=== PATIENT | male | born 1980 | race Caucasian/White ===

== ENCOUNTER 2024-03-13 17:03 | Inpatient (IN) | payer OTHER, SELFPAY ==
[2024-03-13 18:06] VITALS: BMI 22.9
[2024-03-13 18:25] VITALS: BP 125/75; PULSE 80; RESP 17; TEMP 37.1; O2SAT 98
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
[2024-03-13 20:00] VITALS: BP 117/64; PULSE 77; TEMP 36.6; O2SAT 98
[2024-03-13] MEDS: Nicotine Polacrilex 2 MG GUM 4 MG BUCCAL (20:18)
[2024-03-13] MEDS: Gabapentin 400 MG CAPSULE 800 MG PO (20:19)
[2024-03-13] MEDS: Melatonin 3 MG TABLET 9 MG PO (20:19)
[2024-03-13] MEDS: Baclofen 20 MG TABLET PO (20:20)
[2024-03-13] MEDS: buPROPion HCl XL 150 MG TAB.ER.24H PO (21:03)
--- NOTE | 2024-03-14 05:05 | PC.NURSE ---
Pt signed a 3-day notice on 03/13/24 and is up on 03/18/24.
[2024-03-14 08:00] VITALS: BP 117/60; PULSE 61; RESP 18; TEMP 36.4; O2SAT 99
[2024-03-14] MEDS: Baclofen 20 MG TABLET PO ×3 (08:07→20:48)
[2024-03-14] MEDS: buPROPion HCl XL 150 MG TAB.ER.24H PO (08:07)
[2024-03-14] MEDS: Nicotine 21 MG PATCH.TD24 TRANSDERMA (08:07)
[2024-03-14] MEDS: Gabapentin 400 MG CAPSULE 800 MG PO ×3 (08:07→20:47)
[2024-03-14] MEDS: Nicotine Polacrilex 2 MG GUM 4 MG BUCCAL ×6 (08:08→20:53)
[2024-03-14 09:26] LABS: Alanine Aminotransferase 22 U/L (0-40); Albumin Level 3.6 g/dL (3.5-5.0); Alkaline Phosphatase 47 U/L (39-117); Anion Gap 12 (12-20); Aspartate Amino Transferase 14 U/L (5-37); Bilirubin Total 0.2 mg/dL (0.0-1.0); Blood Urea Nitrogen 22 mg/dL (9-16); Calcium 9.1 mg/dL (8.4-10.2); Carbon Dioxide 31 mmol/L (22-29); Chloride 106 mmol/L (96-108); Cholesterol 160 mg/dL (<200); Creatinine Clr Calc Pharmacy 115.4; Estimated Glomerular Filt Rate > 60; Glucose Fasting 86 mg/dL (60-99); HDL Cholesterol 47 mg/dL (>40); LDL Cholesterol Calculated 97 mg/dL (<100); Potassium 4.7 mmol/L (3.3-5.1); Sodium 144 mmol/L (135-145); Total Protein 6.2 g/dL (6.5-8.0); Triglycerides 83 mg/dL (<150)
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
[2024-03-14] MEDS: FLUoxetine HCl 10 MG CAPSULE PO (13:03)
[2024-03-14] MEDS: buPROPion HCL 75 MG TABLET 150 MG PO ×2 (14:07→20:48)
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
[2024-03-14 20:00] VITALS: BP 120/56; PULSE 80; TEMP 36.5; O2SAT 97
[2024-03-14] MEDS: Melatonin 3 MG TABLET 10 MG PO (20:49)
[2024-03-14] MEDS: diphenhydrAMINE HCL 25 MG CAPSULE 50 MG PO (20:53)
[2024-03-15 08:00] VITALS: BP 134/89; PULSE 75; RESP 17; TEMP 36.5; O2SAT 99
[2024-03-15] MEDS: Gabapentin 400 MG CAPSULE 800 MG PO ×3 (08:39→20:35)
[2024-03-15] MEDS: FLUoxetine HCl 10 MG CAPSULE PO (08:39)
[2024-03-15] MEDS: Baclofen 20 MG TABLET PO ×3 (08:40→20:34)
[2024-03-15] MEDS: buPROPion HCL 75 MG TABLET 150 MG PO (08:40)
[2024-03-15] MEDS: Nicotine 21 MG PATCH.TD24 TRANSDERMA (08:40)
--- NOTE | 2024-03-15 09:00 | P.PNPSI_ITS ---
Subjective Subjective Date of Service: 03/15/24 Reason For Visit: unspecified depressive disorder, stimulant use Subjective Notes: Conditional Voluntary and 3 Day Interim History: Patient was seen and discussed in rounds today. Records and plans were reviewed. He has been common pleasant. Some anxiety reported. Eating and sleeping adequately. He states that he is getting the Wellbutrin immediate release and would like to switch to Wellbutrin XL since we do not have the SR available. Tolerating Prozac which was started. No SI. No complaints or side effects. No changes were made today. Medication Compliance: Yes Side effects from medications: No Attending Groups: Yes Review of Systems Review of Systems Yes all other systems are reviewed and are negative Mental Status Exam Mental Status Exam Narrative: In today's visit he is alert, oriented and pleasant. Normal speech. Good eye contact. Affect is appropriate and constricted. No signs of psychosis. No SI/HI. No abnormalities of gait. No musculoskeletal problems. Cognitively is intact. Judgment is intact Diagnostics Vital Signs (24Hr): Vital Signs - 24 hr 03/14/24 20:00 03/15/24 08:00 Temperature 97.7 F 97.7 F Pulse Rate 80 75 Respiratory Rate 17 Blood Pressure 120/56 L 134/89 Pulse Oximetry 97 99 Oxygen Delivery Method Room Air Room Air BMI result Body Mass Index 22.9 Labs 03/14/24 08:27 Labs: Laboratory Results - last 48 hr 03/14/24 08:27 Sodium 144 Potassium 4.7 Chloride 106 Carbon Dioxide 31 H Anion Gap 12 BUN 22 H Creatinine 0.91 Estim Creat Clear Calc 115.4 Estimated GFR > 60 Fasting Glucose 86 Calcium 9.1 Total Bilirubin 0.2 AST 14 ALT 22 Alkaline Phosphatase 47 Total Protein 6.2 L Albumin 3.6 Triglycerides 83 Cholesterol 160 LDL Cholesterol, Calc 97 HDL Cholesterol 47 Medications Medications Current Medications Acetaminophen (Acetaminophen 325 Mg Tablet) 650 mg PO Q6H PRN PRN Reason: Headache/Pain Mild Scale (1-3) Al Hydroxide/Mg Hydroxide (Magnesium Hydrox/Alum Hydrox 30 Ml Oral.Susp) 30 ml PO Q6H PRN PRN Reason: Heartburn/Nausea Amphetamine/Dextroamphetamine (Dextroamphetamine/Amphetamine Xr 10 Mg Cap.Er.24h) 10 mg PO DAILY [facility] Baclofen (Baclofen 20 Mg Tablet) 20 mg PO TID@0900,1200,2100 [facility] Last Admin: 03/15/24 08:40 Dose: 20 mg Bupropion HCl (Bupropion Hcl Xl 150 Mg Tab.Er.24h) 150 mg PO TID [facility] Clonidine HCl (Clonidine Hcl 0.1 Mg Tablet) 0.1 mg PO Q4H PRN; Protocol PRN Reason: anxiety/mild anxiety Diphenhydramine HCl (Diphenhydramine Hcl 25 Mg Capsule) 50 mg PO Q4H PRN PRN Reason: agitation Diphenhydramine HCl (Diphenhydramine Hcl 25 Mg Capsule) 50 mg PO BEDTIME PRN PRN Reason: insomnia Last Admin: 03/14/24 20:53 Dose: 50 mg Fluoxetine HCl (Fluoxetine Hcl 10 Mg Capsule) 10 mg PO DAILY [facility] Last Admin: 03/15/24 08:39 Dose: 10 mg Gabapentin (Gabapentin 400 Mg Capsule) 800 mg PO TID@0900,1200,2100 [facility] Last Admin: 03/15/24 08:39 Dose: 800 mg Haloperidol (Haloperidol 5 Mg Tablet) 5 mg PO Q4H PRN PRN Reason: agitation Lorazepam (Lorazepam 1 Mg Tablet) 1 mg PO TID PRN PRN Reason: mod-severe anxiety Lorazepam (Lorazepam 1 Mg Tablet) 2 mg PO Q4H PRN PRN Reason: severe agitation Magnesium Hydroxide (Milk Of Magnesia 30 Ml Oral.Susp) 30 ml PO DAILY PRN PRN Reason: Constipation Melatonin (Melatonin 3 Mg Tablet) 10 mg PO BEDTIME [facility] Last Admin: 03/14/24 20:49 Dose: 9 mg Nicotine (Nicotine 21 Mg Patch.Td24) 21 mg TRANSDERMA DAILY [facility] Last Admin: 03/15/24 08:40 Dose: 21 mg Nicotine Polacrilex (Nicotine Polacrilex 2 Mg Gum) 4 mg BUCCAL Q2H PRN PRN Reason: Nicotine Cravings Last Admin: 03/14/24 20:53 Dose: 4 mg Allergies Allergies Allergy/AdvReac Type Severity Reaction Status Date / Time No Known Allergies Allergy Verified 03/13/24 18:22 Assessment & Plan Assessment & Plan (1) Antisocial personality disorder: Status: Acute Code(s): F60.2 - Antisocial personality disorder (2) MDD (major depressive disorder), recurrent severe, without psychosis: Status: Acute Code(s): F33.2 - Major depressive disorder, recurrent severe without psychotic features (3) PTSD (post-traumatic stress disorder): Status: Acute Code(s): F43.10 - Post-traumatic stress disorder, unspecified (4) Cocaine use disorder: Status: Acute Code(s): F14.10 - Cocaine abuse, uncomplicated Plan Patient is a 43-year-old male with long history of incarceration, antisocial personality disorder, crack cocaine abuse, PTSD who was [facility] ago after 15 years incarceration who presents for increasing depression and intermittent SI. Patient is pleasant, cooperative and friendly with account underwriter. Apologized for last night's outburst towards female staff to whom he swore. Regarding incarceration, He says I am 1 of the violence sociopath that ran that place... Patient said that throughout all his life which involved numerous traumas and Adolescent hears filled with crime on to leave incarcerated around 18 years old, he never felt depressed or suicidal; he says that all throughout his 23 years of incarceration he never once felt depressed or suicidal. He is very surprised that now that he is out of intermediate he would start to get depressed and think about ending his life. Patient said that this past week after coming down from crack cocaine high, he actually put a gun in his mouth and pulled the trigger, saying that it must have been God's intervention that he still alive. Patient said that he is no longer suicidal at all but wants help with this depression. Patient understands that while incarcerated there was no time for depression and no time to think about past traumas; now that he is free with no structure in his life, numerous unpleasant memories are returning. He also understands that crack cocaine withdrawal induced his depression and he says he is willing to stop using. Patient assures account underwriter that he will thus forward behavior on the unit and remained in good behavioral and impulse control. He understands that inappropriate behaviors will result in administrative discharge which patient readily acknowledges as happened in the past. -noteworthy, patient obtained a bachelor's in business administration while incarcerated Formulation/clinical reasoning: Patient demonstrates some insight into reasons for depression and intermittent SI since [facility] from [facility]. He says he very much misses the structure and though he does not want to go back to [facility], feels very lost and finding it difficult to adjust to civilian life. Patient has been selling and abusing crack cocaine since his release which he says for feels his need for adrenaline. He seems to accept that the be no end to his depression if he continues using crack cocaine and says he will stop. Patient feels that he can keep his anger under control very well and is looking for medications to help with depression and anxiety. Reviewed medication options, risks/side effects and patient agrees to Prozac (refuses medications such as Depakote). Asks for Ativan to be available to him just while he is on the inpatient unit to help him stay calm if triggered. He volunteers that he knows it would not be continued on discharge. Patient reports history of ADHD and that he was prescribed Adderall during his teenage years which he found very helpful. He asks if he can try it again. Patient reports all suicidality is fully resolved. *patient may discharge at any time Plan: CV Q 15 minute checks Start Prozac 10 mg daily for depression/anxiety/PTSD Continue Wellbutrin 150 mg t.i.d.; normally takes SR but agrees to IR since that is available Continue gabapentin 800 mg t.i.d.; patient shows numerous injuries; patient was on while incarcerated and has continued on this Continue baclofen t.i.d. for back pain; patient was on while incarcerated and has continued on this Added clonidine as a p.r.n. Ativan as a p.r.n. Haldol as a p.r.n. for severe agitation Med trials: Hermilo Lui made his mind like dheeraj 03/15/24: Continue current regimen and plans. Switched Wellbutrin to Wellbutrin XL Patient educated on: medication risk/benefits Reason for continued inpatient stay Substantial Risk for: med/psych decompensation Time Spent With Patient Time: Total time managing care of this patient today ____ minutes.
[2024-03-15] MEDS: Nicotine Polacrilex 2 MG GUM 4 MG BUCCAL ×5 (09:04→20:34)
[2024-03-15] MEDS: buPROPion HCl XL 150 MG TAB.ER.24H PO ×2 (14:03→20:36)
--- NOTE | 2024-03-15 16:35 | PC.NURSE ---
Pt peer reported to TW that he overheard pt talking with another female about how he was hatching a plan to bring him in drugs. Shortly after this was reported to TW pt was noted on the patient phone talking with someone. This was communicated with charger operator helper and obtained order from Dr Waite for supervised visits if he has any visitors. Will continue to monitor.
[2024-03-15 20:00] VITALS: BP 126/67; PULSE 89; TEMP 36.9; O2SAT 97
[2024-03-15] MEDS: Melatonin 3 MG TABLET 10 MG PO (20:33)
[2024-03-15] MEDS: diphenhydrAMINE HCL 25 MG CAPSULE 50 MG PO (20:35)
[2024-03-15] MEDS: LORazepam 1 MG TABLET PO (20:36)
[2024-03-16 08:10] VITALS: BP 111/84; PULSE 75; RESP 16; TEMP 36.4; O2SAT 99
--- NOTE | 2024-03-16 08:13 | P.PNPSI_ITS ---
Subjective Subjective Date of Service: 03/15/24 Reason For Visit: unspecified depressive disorder, stimulant use Subjective Notes: Conditional Voluntary and 3 Day Interim History: Patient was seen and discussed in rounds today. Records and plans were reviewed. He continues to be expansive and a little labile. Some sexualized behaviors, exposing himself in the hallway to prove he is of [place] descent!. Yesterday his visitor had to be with supervision because of a report that somebody was seeing him to bring in drugs. This will be continued. Continues to be grandiose and inappropriate. He is social and interactive. Medication Compliance: Yes Side effects from medications: No Attending Groups: Yes Review of Systems Review of Systems Yes all other systems are reviewed and are negative Mental Status Exam Mental Status Exam Narrative: In today's visit he is alert, oriented and pleasant. Normal speech. Good eye contact. Affect is little expansive. No acute signs of psychosis. No SI. No cognitive deficits. Judgment is marginal Diagnostics Vital Signs (24Hr): Vital Signs - 24 hr 03/15/24 20:00 Temperature 98.4 F Pulse Rate 89 Blood Pressure 126/67 Pulse Oximetry 97 Oxygen Delivery Method Room Air BMI result Body Mass Index 22.9 Labs 03/14/24 08:27 Labs: Laboratory Results - last 48 hr 03/14/24 08:27 Sodium 144 Potassium 4.7 Chloride 106 Carbon Dioxide 31 H Anion Gap 12 BUN 22 H Creatinine 0.91 Estim Creat Clear Calc 115.4 Estimated GFR > 60 Fasting Glucose 86 Calcium 9.1 Total Bilirubin 0.2 AST 14 ALT 22 Alkaline Phosphatase 47 Total Protein 6.2 L Albumin 3.6 Triglycerides 83 Cholesterol 160 LDL Cholesterol, Calc 97 HDL Cholesterol 47 Medications Medications Current Medications Acetaminophen (Acetaminophen 325 Mg Tablet) 650 mg PO Q6H PRN PRN Reason: Headache/Pain Mild Scale (1-3) Al Hydroxide/Mg Hydroxide (Magnesium Hydrox/Alum Hydrox 30 Ml Oral.Susp) 30 ml PO Q6H PRN PRN Reason: Heartburn/Nausea Amphetamine/Dextroamphetamine (Dextroamphetamine/Amphetamine Xr 10 Mg Cap.Er.24h) 10 mg PO DAILY [facility] Baclofen (Baclofen 20 Mg Tablet) 20 mg PO TID@0900,1200,2100 [facility] Last Admin: 03/15/24 20:34 Dose: 20 mg Bupropion HCl (Bupropion Hcl Xl 150 Mg Tab.Er.24h) 150 mg PO TID [facility] Last Admin: 03/15/24 20:36 Dose: 150 mg Clonidine HCl (Clonidine Hcl 0.1 Mg Tablet) 0.1 mg PO Q4H PRN; Protocol PRN Reason: anxiety/mild anxiety Diphenhydramine HCl (Diphenhydramine Hcl 25 Mg Capsule) 50 mg PO Q4H PRN PRN Reason: agitation Diphenhydramine HCl (Diphenhydramine Hcl 25 Mg Capsule) 50 mg PO BEDTIME PRN PRN Reason: insomnia Last Admin: 03/15/24 20:35 Dose: 50 mg Fluoxetine HCl (Fluoxetine Hcl 10 Mg Capsule) 10 mg PO DAILY [facility] Last Admin: 03/15/24 08:39 Dose: 10 mg Gabapentin (Gabapentin 400 Mg Capsule) 800 mg PO TID@0900,1200,2100 [facility] Last Admin: 03/15/24 20:35 Dose: 800 mg Haloperidol (Haloperidol 5 Mg Tablet) 5 mg PO Q4H PRN PRN Reason: agitation Lorazepam (Lorazepam 1 Mg Tablet) 1 mg PO TID PRN PRN Reason: mod-severe anxiety Last Admin: 03/15/24 20:36 Dose: 1 mg Lorazepam (Lorazepam 1 Mg Tablet) 2 mg PO Q4H PRN PRN Reason: severe agitation Magnesium Hydroxide (Milk Of Magnesia 30 Ml Oral.Susp) 30 ml PO DAILY PRN PRN Reason: Constipation Melatonin (Melatonin 3 Mg Tablet) 10 mg PO BEDTIME [facility] Last Admin: 03/15/24 20:33 Dose: 9 mg Nicotine (Nicotine 21 Mg Patch.Td24) 21 mg TRANSDERMA DAILY [facility] Last Admin: 03/15/24 08:40 Dose: 21 mg Nicotine Polacrilex (Nicotine Polacrilex 2 Mg Gum) 4 mg BUCCAL Q2H PRN PRN Reason: Nicotine Cravings Last Admin: 03/15/24 20:34 Dose: 4 mg Allergies Allergies Allergy/AdvReac Type Severity Reaction Status Date / Time No Known Allergies Allergy Verified 03/13/24 18:22 Assessment & Plan Assessment & Plan (1) Antisocial personality disorder: Status: Acute Code(s): F60.2 - Antisocial personality disorder (2) MDD (major depressive disorder), recurrent severe, without psychosis: Status: Acute Code(s): F33.2 - Major depressive disorder, recurrent severe without psychotic features (3) PTSD (post-traumatic stress disorder): Status: Acute Code(s): F43.10 - Post-traumatic stress disorder, unspecified (4) Cocaine use disorder: Status: Acute Code(s): F14.10 - Cocaine abuse, uncomplicated Plan Patient is a 43-year-old male with long history of incarceration, antisocial personality disorder, crack cocaine abuse, PTSD who was released from group home a year ago after 15 years incarceration who presents for increasing depression and intermittent SI. Patient is pleasant, cooperative and friendly with publications writer. Apologized for last night's outburst towards female staff to whom he swore. Regarding incarceration, He says I am 1 of the violence sociopath that ran that place... Patient said that throughout all his life which involved numerous traumas and Adolescent hears filled with crime on to leave incarcerated around 18 years old, he never felt depressed or suicidal; he says that all throughout his 23 years of incarceration he never once felt depressed or suicidal. He is very surprised that now that he is out of longterm he would start to get depressed and think about ending his life. Patient said that this past week after coming down from crack cocaine high, he actually put a gun in his mouth and pulled the trigger, saying that it must have been God's intervention that he still alive. Patient said that he is no longer suicidal at all but wants help with this depression. Patient understands that while incarcerated there was no time for depression and no time to think about past traumas; now that he is free with no structure in his life, numerous unpleasant memories are returning. He also understands that crack cocaine withdrawal induced his depression and he says he is willing to stop using. Patient assures publications writer that he will thus forward behavior on the unit and remained in good behavioral and impulse control. He understands that inappropriate behaviors will result in administrative discharge which patient readily acknowledges as happened in the past. -noteworthy, patient obtained a bachelor's in business administration while incarcerated Formulation/clinical reasoning: Patient demonstrates some insight into reasons for depression and intermittent SI since released from group home. He says he very much misses the structure and though he does not want to go back to group home, feels very lost and finding it difficult to adjust to civilian life. Patient has been selling and abusing crack cocaine since his release which he says for feels his need for adrenaline. He seems to accept that the be no end to his depression if he continues using crack cocaine and says he will stop. Patient feels that he can keep his anger under control very well and is looking for medications to help with depression and anxiety. Reviewed medication options, risks/side effects and patient agrees to Prozac (refuses medications such as Depakote). Asks for Ativan to be available to him just while he is on the inpatient unit to help him stay calm if triggered. He volunteers that he knows it would not be continued on discharge. Patient reports history of ADHD and that he was prescribed Adderall during his teenage years which he found very helpful. He asks if he can try it again. Patient reports all suicidality is fully resolved. *patient may discharge at any time Plan: CV Q 15 minute checks Start Prozac 10 mg daily for depression/anxiety/PTSD Continue Wellbutrin 150 mg t.i.d.; normally takes SR but agrees to IR since that is available Continue gabapentin 800 mg t.i.d.; patient shows numerous injuries; patient was on while incarcerated and has continued on this Continue baclofen t.i.d. for back pain; patient was on while incarcerated and has continued on this Added clonidine as a p.r.n. Ativan as a p.r.n. Haldol as a p.r.n. for severe agitation Med trials: Hermilo Lui made his mind like mush 03/15/24: Continue current regimen and plans. Switched Wellbutrin to Wellbutrin XL 03/16: Continue current regimen and planslan Reason for continued inpatient stay Substantial Risk for: med/psych decompensation Time Spent With Patient Time: Total time managing care of this patient today ____ minutes.
[2024-03-16] MEDS: Gabapentin 400 MG CAPSULE 800 MG PO ×3 (08:21→20:55)
[2024-03-16] MEDS: Baclofen 20 MG TABLET PO ×3 (08:21→20:56)
[2024-03-16] MEDS: buPROPion HCl XL 150 MG TAB.ER.24H PO ×3 (08:21→20:56)
[2024-03-16] MEDS: FLUoxetine HCl 10 MG CAPSULE PO (08:21)
[2024-03-16] MEDS: Nicotine 21 MG PATCH.TD24 TRANSDERMA (08:24)
[2024-03-16] MEDS: Nicotine Polacrilex 2 MG GUM 4 MG BUCCAL ×5 (08:26→21:10)
[2024-03-16] MEDS: LORazepam 1 MG TABLET 2 MG PO (16:24)
[2024-03-16 17:29] VITALS: BP 124/86
[2024-03-16] MEDS: LORazepam 1 MG TABLET PO (17:29)
[2024-03-16] MEDS: cloNIDine HCL 0.1 MG TABLET PO (17:29)
[2024-03-16 20:00] VITALS: BP 134/99; RESP 16; TEMP 36.6; O2SAT 98
[2024-03-16] MEDS: Melatonin 3 MG TABLET 10 MG PO (20:56)
[2024-03-16] MEDS: diphenhydrAMINE HCL 25 MG CAPSULE 50 MG PO (21:16)
[2024-03-17 08:00] VITALS: BP 126/69; PULSE 79; TEMP 36.7; O2SAT 99
[2024-03-17] MEDS: Nicotine 21 MG PATCH.TD24 TRANSDERMA (08:05)
[2024-03-17] MEDS: Dextroamphetamine/Amphetamine XR 10 MG CAP.ER.24H PO (08:06)
[2024-03-17] MEDS: Baclofen 20 MG TABLET PO ×2 (08:06→13:09)
[2024-03-17] MEDS: buPROPion HCl XL 150 MG TAB.ER.24H PO ×2 (08:06→14:03)
[2024-03-17] MEDS: Gabapentin 400 MG CAPSULE 800 MG PO ×2 (08:06→13:09)
[2024-03-17] MEDS: FLUoxetine HCl 10 MG CAPSULE PO (08:06)
[2024-03-17] MEDS: Nicotine Polacrilex 2 MG GUM 4 MG BUCCAL ×4 (08:28→15:08)
--- NOTE | 2024-03-17 14:39 | PC.NURSE ---
It was reported by OT that a conversation between two female patients was overheard in her group discussing comments and behaviors that have been ongoing. The female Patient was approached and asked what was going on and she stated that Sekou has been constantly approaching her and asking her if he could meet her in the bathroom where they can't be seen or heard, he said that he would meet her anywhere anytime and do all the things to her. He said he would love to grab her and get a blow job. Patient proceeded to tell Sekou that she is not interested and is a lesbian and Sekou responded, ooh, I like a girl who fights back This female patient said that he has been doing this constantly and it just does not stop.
--- NOTE | 2024-03-17 14:40 | PC.NURSE ---
Late entry for 03/16/24 07:00-19:30: This morning, Sekou referred to this telegraphic typewriter operator chief as fun size . Per female MHC, this afternoon pt Jayne reported that Sekou was overheard making sexual comments about female staff in the day room. Shortly after, female MHC reported that Sekou stated you're fun size, do you wanna have fun? and there's no bitches here so I'm gonna hit on the staff .
--- NOTE | 2024-03-17 16:42 | PC.NURSE ---
Zee, a brand new patient on the unit, approached [facility] and reported that I dont feel safe here , She also said to [facility] and this tag writer Sekou asked me for sex. I said I wasnt feeling good about myself and Sekou said 'oh no, youre beautiful, come down to my room and I'll show you!' I told him I had a boyfriend, he said 'it doesnt matter, I have a girlfriend' . Support and reassurance provided. Zee asked to talk with a peer for support, they are talking now. The above was reported to Dr Summers, and charge nurse Khadra Kay.
--- NOTE | 2024-03-17 16:56 | P.DS_ITS ---
DS: Providers Provider Date of Service: 03/17/24 Date of admission: 03/13/24 17:03 Date of discharge: 03/17/24 Primary care physician: Unknown Physician Attending physician on admission: Reddy Summers Consults: 03/13/24 10:58 Consult to Hospitalist Routine Comment: Consulting Provider: Hospitalist Reason For Exam: Direct admission Attending physician on discharge: Reddy Summers DS: Diagnosis Discharge Diagnosis (1) Antisocial personality disorder: Status: Acute (2) MDD (major depressive disorder), recurrent severe, without psychosis: Status: Acute (3) PTSD (post-traumatic stress disorder): Status: Acute (4) Cocaine use disorder: Status: Acute DS: Medications Discharge Medications Home Medications: Previous Rx's ?Medication ?Instructions ?Recorded baclofen 20 mg tablet 20 mg PO TID muscle spasm 30 days 03/17/24 #90 tabs bupropion HCl 150 mg tablet,12 hr 150 mg PO TID depressive disorder 03/17/24 sustained-release 30 days #90 tabs clonidine HCl 0.1 mg tablet 0.1 mg PO Q4H PRN anxiety/insomnia 03/17/24 30 days #90 tabs dextroamphetamine-amphetamine ER 30 mg PO DAILY 30 days #30 caps 03/17/24 30 mg 24hr capsule,extend release diphenhydramine HCl 25 mg capsule 50 mg (2 x 25 mg) PO BEDTIME PRN 03/17/24 (Banophen) insomnia 30 days #60 caps fluoxetine 10 mg capsule 10 mg PO DAILY 30 days #30 caps 03/17/24 gabapentin 800 mg tablet 800 mg PO TID neuropathic pain 30 03/17/24 days #90 tabs melatonin 3 mg tablet 9 mg (3 x 3 mg) PO BEDTIME 03/17/24 insomnia 30 days #90 tabs Mental Status Exam Mental Status Exam Narrative: Pt is alert and oriented; behavior is cooperative, friendly and calm; patient is not in distress; dressed in casual attire with adequate hygiene; mood is described as ok and affect congruent; eye contact appropriate; Speech is normal rate, volume and prosody and not pressured; no psychomotor agitation/retardation present; thought process is organized and goal directed; Thought content is on female peers/staff; otherwise pertinent to relevant topics and without any delusional content, paranoid ideations or grandiosity; denies any SI/HI. There is no evidence of perceptual disturbance. Patients insight and judgment impaired but at baseline and adequate. Data Data Completed and Pending Completed studies during hospitalization [Text1]: 03/14/24 08:27 Sodium 144 Potassium 4.7 Chloride 106 Carbon Dioxide 31 H Anion Gap 12 BUN 22 H Creatinine 0.91 Estim Creat Clear Calc 115.4 Estimated GFR > 60 Fasting Glucose 86 Calcium 9.1 Total Bilirubin 0.2 AST 14 ALT 22 Alkaline Phosphatase 47 Total Protein 6.2 L Albumin 3.6 Triglycerides 83 Cholesterol 160 LDL Cholesterol, Calc 97 HDL Cholesterol 47 DS: Summary Hospital Course Hospital Course: Patient is a 43-year-old male with long history of incarceration, antisocial personality disorder, crack cocaine abuse, PTSD who was released [facility] a year ago after 15 years incarceration who presents for increasing depression and intermittent SI. Patient is pleasant, cooperative and friendly with rewriter. Apologized for last night's outburst towards female staff to whom he swore. Regarding incarceration, He says I am 1 of the violence sociopath that ran that place... Patient said that throughout all his life which involved numerous traumas and Adolescent hears filled with crime on to leave incarcerated around 18 years old, he never felt depressed or suicidal; he says that all throughout his 23 years of incarceration he never once felt depressed or suicidal. He is very surprised that now that he is out of correction he would start to get depressed and think about ending his life. Patient said that this past week after coming down from crack cocaine high, he actually put a gun in his mouth and pulled the trigger, saying that it must have been God's intervention that he still alive. Patient said that he is no longer suicidal at all but wants help with this depression. Patient understands that while incarcerated there was no time for d epression and no time to think about past traumas; now that he is free with no structure in his life, numerous unpleasant memories are returning. He also understands that crack cocaine withdrawal induced his depression and he says he is willing to stop using. Patient assures rewriter that he will thus forward behavior on the unit and remained in good behavioral and impulse control. He understands that inappropriate behaviors will result in administrative discharge which patient readily acknowledges as happened in the past. -noteworthy, patient obtained a bachelor's in business administration while incarcerated Formulation/clinical reasoning: Patient demonstrates some insight into reasons for depression and intermittent SI since released from [facility]. He says he very much misses the structure and though he does not want to go back to [facility], feels very lost and finding it difficult to adjust to civilian life. Patient has been selling and abusing crack cocaine since his release which he says for feels his need for adrenaline. He seems to accept that the be no end to his depression if he continues using crack cocaine and says he will stop. Patient feels that he can keep his anger under control very well and is looking for medications to help with depression and anxiety. Reviewed medication options, risks/side effects and patient agrees to Prozac (refuses medications such as Depakote). Asks for Ativan to be available to him just while he is on the inpatient unit to help him stay calm if triggered. He volunteers that he knows it would not be continued on discharge. Patient reports history of ADHD and that he was prescribed Adderall during his teenage years which he found very helpful. He asks if he can try it again. Patient reports all suicidality is fully resolved. Hospital course: On admission, patient got angry called female staff derogatory names; he later apologized. He reported depression though it was already abating and SI had resolved. He was continued on home medications and started on start Prozac for depression/anxiety and PTSD as well as clonidine as a p.r.n. Over subsequent days, depression and SI remained resolved. Patient continued to use sexually inappropriate language and prepositions with female peers and staff; ask several peers for sex. Patient also talking about drug use, his plans to continue using. 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 Otherwise patient reported that he was doing overall better, the clonidine was significantly lowering his anxiety. Patient denied any medication side effects. Patient was confronted about behaviors and given another chance to get himself under behavioral and impulse control however later that same day he again asked another female peer, just admitted if she would engage in sexual act. Patient was informed he was thus being administratively discharged. He did not think it was fair but accepted it and said was going to get high. While patient remains vulnerable to relapse and mood dysregulation, this is a chronic issue that will not resolve with longer stay on inpatient u nit, but rather requires consistent outpatient therapy and sobriety with which patient is not yet quite ready to engage. At this time patient is not appropriate for the inpatient setting. He is not in imminent risk for harm to self or others and appropriate to return to the community for treatment. Time spent discussing smoking cessation with patient: 3 to 10 minutes Status at Discharge Functional status at discharge: independent ambulation Overall status at discharge: patient is back to baseline Time Spent with Patient Time attestation: Total time managing care of this patient today _50___ minutes. Time spent: Greater than 30 minutes Specific discharge activities: Discussed with team; met with patient; met with patient again; discharge medications, notations, discharge planning Discharge Plan Discharge Anticipated Discharge Date/Time: 03/17/24 16:53 Patient Disposition: Skilled Nursing Discharge Diagnosis: MDD, recurrent, moderate in full remission Referrals: Physician,Unknown J [Primary Care Provider] - 1 Week Discharge Medications: New clonidine HCl 0.1 mg Tablet 0.1 mg PO Q4H PRN (Reason: anxiety/insomnia) 30 Days Qty: 90 0RF Protocol: Hold for SBP< HOLD for SBP < : 90 fluoxetine 10 mg Capsule 10 mg PO DAILY 30 Days Qty: 30 0RF diphenhydramine HCl [Banophen] 25 mg Capsule 50 mg PO BEDTIME PRN (Reason: insomnia) 30 Days Qty: 60 0RF dextroamphetamine-amphetamine [Adderall XR] 30 mg capsule,extended release 24hr 30 mg PO DAILY 30 Days Qty: 30 0RF Rx Instructions: Partial Fill upon patient request. gabapentin 400 mg capsule 800 mg PO TID 30 Days Qty: 180 0RF Continued bupropion HCl 150 mg tablet sustained-release 12 hr 150 mg PO TID 30 Days Qty: 90 0RF melatonin 3 mg tablet 9 mg PO BEDTIME 30 Days Qty: 90 0RF baclofen 20 mg tablet 20 mg PO TID 30 Days Qty: 90 0RF Discontinued gabapentin 800 mg tablet 800 mg PO TID Discharge Orders: Discharge Order (Routine); Ordered 03/17/24 Ordered By: Reddy Summers Diet: Regular diet Activity on Discharge: As tolerated Stand Alone Forms: Patient Portal Discharge page, Community Support Print Language: Scottish Care Plan Goals: Maintain mood and safe behaviors Take medications as prescribed Continue to pursue sobriety Practice coping skills Continue with outpatient providers and reach out to them as needed Health Concerns: Mood stability and behaviors Sobriety Plan of Treatment: Follow up with your PCP, psychiatric provider and other outpatient providers regarding above concerns Take medications as prescribed Assessment: Risk assessment at time of discharge:? Patient was interviewed prior to discharge and found to be fully oriented and without any SI or HI. Patient has improved insight and judgment and wants to continue treatment. Patient is not in imminent risk of harm to self or others and has a safety plan that includes presenting to the closest ER or calling 911 if feeling unsafe.? Patient has been observed closely by nursing and unit staff throughout admission; patient has not engaged in any behaviors that suggest dangerousness to self or others Discharge Date/Time: 03/17/24 18:08
== END 2024-03-17 18:08 | disposition home or self-care (01) | DRG 751 ==
PROVIDERS: Psychiatry & Neurology Psychiatry; Admitting Provider Psychiatry & Neurology Psychiatry; Visit Provider Psychiatry & Neurology Psychiatry
DX: F33.1 Major depressive disorder, recurrent, moderate (principal); R45.851 Suicidal ideations; F14.10 Cocaine abuse, uncomplicated; F17.210 Nicotine dependence, cigarettes, uncomplicated; Z71.6 Tobacco abuse counseling; F90.9 Attention-deficit hyperactivity disorder, unspecified type; F43.10 Post-traumatic stress disorder, unspecified; G89.21 Chronic pain due to trauma; X99.9XXS Assault by unspecified sharp object, sequela; F60.2 Antisocial personality disorder; Z79.899 Other long term (current) drug therapy
CPT/HCPCS: 36415; 80053; 80061

== ENCOUNTER → 2024-03-13 17:03 | Outpatient (BNV) | payer MEDICAID, SELFPAY | PROVIDERS: Admitting Provider Psychiatry & Neurology Psychiatry; Visit Provider Student in an Organized Health Care Education/Training Program | DX: Z02.2 Encounter for examination for admission to residential institution (principal) | CPT/HCPCS: 99429 ==

== ENCOUNTER → 2024-03-13 17:03 | Outpatient (BNV) | payer OTHER, SELFPAY | PROVIDERS: Admitting Provider Psychiatry & Neurology Psychiatry; Visit Provider Psychiatry & Neurology Psychiatry | DX: F60.2 Antisocial personality disorder (principal); F33.2 Major depressive disorder, recurrent severe without psychotic features; F14.10 Cocaine abuse, uncomplicated; F43.11 Post-traumatic stress disorder, acute | CPT/HCPCS: 99231; 99232; 99233 ==